=== PATIENT | female | born 1950 | race Caucasian/White ===

== ENCOUNTER 2017-09-25 08:37 | Outpatient (CLI) | payer BC ==
--- NOTE | 2017-09-30 16:44 | Mammography Report ---
DIGITAL BILATERAL SCREENING MAMMOGRAM: 09/25/2017 COMPARISON EXAM: Mammogram 09/28/2015. BREAST DENSITY: The breast parenchyma is extremely dense which may limit the sensitivity of mammography. TECHNIQUE: Routine CC and MLO projections were obtained of the breasts. FINDINGS: Parenchymal tissue within both breasts is extremely dense, which lowers the sensitivity of mammography; however, there are no dominant masses, suspicious microcalcifications, or secondary signs of malignancy. In comparison to the previous studies, there are no significant changes. There is a scar marker on the left breast. IMPRESSION: No mammographic evidence of malignancy. BIRADS category 2 - benign findings. PLAN: Screening mammography is recommended annually. STANDARD QUALIFYING STATEMENTS 1. This examination was reviewed with the aid of Computed-Aided Detection (CAD). 2. A negative or benign imaging report should not delay biopsy if clinically suspicious findings are present. Consider surgical consultation if warranted. More than 5% of cancers are not identified by imaging. 3. Dense breasts may obscure an underlying neoplasm. MTDD
== END 2017-09-25 08:38 | disposition home or self-care (01) ==
LOC: DI.S 08:37
PROVIDERS: ATTEND Physician Assistant
DX: Z12.31 Encounter for screening mammogram for malignant neoplasm of breast (principal)
CPT/HCPCS: 77067

== ENCOUNTER 2018-10-27 10:29 | Outpatient (CLI) | payer MEDICARE, OTHER ==
--- NOTE | 2018-10-27 14:34 | XRAY Report ---
Reason: LOW BACK PAIN Procedure Date: 10/27/2018 Accession Number: [id number] / [id number] Procedure: XR - Lumbar Spine 2 View CPT Code: FULL RESULT: EXAM: LUMBOSACRAL SPINE RADIOGRAPHY EXAM DATE: 10/27/2018 11:47 AM. CLINICAL HISTORY: Low back pain. COMPARISONS: None. TECHNIQUE: 3 views. FINDINGS: Alignment: Normal. No spondylolisthesis or scoliosis. Bones: Five vyn-kkf-eocuznf lumbar vertebral bodies are present. No fractures or bone lesions. Disks: Mild multilevel disk desiccation which is most pronounced at L1-L2 where there is marginal osteophytosis. Facets: Moderate facet arthropathy at L4 and moderate to severe facet arthropathy at L5. Sacroiliac Joints: Unremarkable. Soft Tissues: Normal. The visualized bowel gas pattern is normal. IMPRESSION: Degenerative changes. RADIA
== END 2018-10-27 10:30 | disposition home or self-care (01) ==
LOC: DI 10:29
PROVIDERS: ATTEND Nurse Practitioner Family
DX: M47.9 Spondylosis, unspecified (principal); M51.36 Other intervertebral disc degeneration, lumbar region
CPT/HCPCS: 72100

== ENCOUNTER 2019-12-17 08:44 | Outpatient (CLI) | payer MEDICARE, OTHER ==
--- NOTE | 2019-12-22 13:46 | Mammography Report ---
Reason: ROUTINE MAMMOGRAM Procedure Date: 12/17/2019 Accession Number: [id number] / [id number] Procedure: ILAN - Screening Mammo w/George CPT Code: Final Report FULL RESULT: EXAM: Screening Mammo w/George DATE: 12/17/2019 9:08 AM CLINICAL HISTORY: Screening encounter. History of nulliparity. TECHNIQUE: (B) - Bilateral CC and MLO views were obtained. COMPARISON: 09/25/2017 through 12/09/2012. PARENCHYMAL PATTERN: (D) - The breast(s) demonstrate(s) heterogeneously dense fibroglandular parenchyma. FINDINGS: There are no suspicious masses, calcifications, or areas of distortion. IMPRESSION: Negative examination. BI-RADS category 1. RECOMMENDATION: (ANNUAL) - Recommend routine annual screening mammography. BI-RADS CATEGORY: (1) - Negative. STANDARD QUALIFYING STATEMENTS: 1. This examination was not reviewed with the aid of Computer-Aided Detection (CAD). 2. A negative or benign imaging report should not preclude biopsy if clinically suspicious findings are present. 3. Dense breasts may obscure an underlying neoplasm. 4. This examination was reviewed with the aid of 3D breast imaging (tomosynthesis).
== END 2019-12-17 08:45 | disposition home or self-care (01) ==
LOC: DI 08:44
DX: Z12.31 Encounter for screening mammogram for malignant neoplasm of breast (principal)
CPT/HCPCS: 77063; 77067

== ENCOUNTER 2021-09-17 08:00 | Outpatient (CLI) | payer MEDICARE, OTHER ==
--- NOTE | 2021-09-17 11:11 | XRAY Report ---
PROCEDURE: Pelvis 3 View INDICATIONS: LEFT HIP PAIN TECHNIQUE: AP pelvis with lateral view(s) of the left hip(s). COMPARISON: Reference is made to the CT pelvis dated August 05, 2015. FINDINGS: BONES/JOINT: No acute, displaced fracture or dislocation. Mild to moderate joint space loss with para tracheal osteophytosis. No widening of the pubic symphysis. The sacroiliac joints are patent. SOFT TISSUES: No significant abnormality. IMPRESSION: 1.No acute osseous abnormality. Reviewed by: Jose Hilliard MD on 09/17/2021 11:10 AM [facility] Approved by: Jose Hilliard MD on 09/17/2021 11:10 AM [facility] Station ID: [id number]
== END 2021-09-17 23:59 | disposition home or self-care (01) ==
LOC: DI.S 08:00
PROVIDERS: ATTEND Physician Assistant Medical
DX: M25.552 Pain in left hip (principal); R10.32 Left lower quadrant pain

== ENCOUNTER 2021-09-20 06:56 | Outpatient (CLI) | payer MEDICARE, OTHER ==
--- NOTE | 2021-09-20 09:00 | MRI Report ---
PROCEDURE: Hip LT W/O INDICATIONS: PAIN IN LEFT HIP TECHNIQUE: Noncontrast coronal T1 spin echo and STIR through the bony pelvis. Coronal and axial T2 fast spin ec ho with fat saturation, sagittal T1 spin echo, and oblique axial T2 fast spin echo with fat saturatio n through the hip. COMPARISON: None. FINDINGS: Bones: There is marked marrow edema within the acetabular roof and posterior column. There is subtle linear signal change involving the posterior column for example image 18/601, image 21/401. These elaine earances are suggestive of nondisplaced, incomplete acetabular fracture. Mild edema involving the anterior femoral head although unclear if this represents contusion versus r eactive to chronic degenerative joint disease. No avascular necrosis of the femoral heads. Lower lumbar spondylosis and facet arthropathy. Sacroiliac joints: Normal. Tendons: Hip abductors: Gluteus minimus and medius intact. No muscle atrophy. There is mild edema within the hip adductor compartment suggestive of low-grade acute muscle strain Iliopsoas tendon: Intact. No adjacent bursitis. Hamstring tendon origin: Intact. Labrum and cartilage: Acetabular labrum: No discrete labral tear identified. Cartilage: Cartilage appears intact. Alpha angle of the femur: Within normal limits at less than 55 degrees. Soft tissues: Visualized muscles: Normal bulk and internal signal. Proximal sciatic neurovascular bundle: Normal. Pelvic free fluid: None. Bladder: Normal. Genitourinary structures and bowel loops: Normal where visualized. IMPRESSION: Signal changes and marrow edema involving the left acetabulum, compatible with incomplete/nondisplace d fracture. Recommend weightbearing precautions. Further evaluation and confirmation with dedicated C T could be performed. Additional marrow edema involving the femoral head which may represent small marrow contusion. Low-grade strain of the hip adductor muscles. Reviewed by: Zhang Hoffman MD on 09/20/2021 8:59 AM PST Approved by: Zhang Hoffman MD on 09/20/2021 8:59 AM PST Station ID: [id number]
== END 2021-09-20 06:57 | disposition home or self-care (01) ==
LOC: DI 06:56
PROVIDERS: ATTEND Family Medicine
DX: S76.012A Strain of muscle, fascia and tendon of left hip, initial encounter (principal); R93.6 Abnormal findings on diagnostic imaging of limbs

== ENCOUNTER 2021-10-11 11:01 | Outpatient (CLI) | payer MEDICARE, OTHER ==
[2021-10-11 11:16] LABS: BASOPHILS # (AUTO) 0.1 10^3/uL (0.0-0.1); BASOPHILS % (AUTO) 0.6 %; EOSINOPHILS # (AUTO) 0.2 10^3/uL (0.0-0.7); EOSINOPHILS % (AUTO) 2.8 %; HCT - HEMATOCRIT 41.4 % (37.0-47.0); HGB - HEMOGLOBIN 14.1 g/dL (12.0-16.0); LYMPHOCYTES % (AUTO) 11.9 %; MEAN CORPUSCULAR HEMOGLOBIN 31.8 pg (27.0-31.0); MEAN CORPUSCULAR HGB CONC 34.1 g/dL (32.0-36.0); MEAN CORPUSCULAR VOLUME 93.2 fL (81.0-99.0); MEAN PLATELET VOLUME 8.3 fL (7.9-10.8); MONOCYTES # (AUTO) 0.9 10^3/uL (0.0-1.0); MONOCYTES % (AUTO) 11.1 %; NEUTROPHILS # (AUTO) 6.1 10^3/uL (1.5-6.6); NEUTROPHILS % (AUTO) 73.4 %; PLT - PLATELET COUNT 277 10^3/uL (130-450); RED BLOOD COUNT 4.44 10^6/uL (4.20-5.40); WHITE BLOOD COUNT 8.4 x10^3/uL (4.8-10.8)
[2021-10-11 11:29] LABS: ALBUMIN/GLOBULIN RATIO 1.1 (1.0-2.2); BILIRUBIN,TOTAL 0.7 mg/dL (0.2-1.0); CALCIUM 9.8 mg/dL (8.5-10.3); CREATININE 0.7 mg/dL (0.4-1.0); POTASSIUM 3.9 mmol/L (3.5-5.0); TOTAL PROTEIN 7.8 g/dL (6.7-8.2); URIC ACID 5.9 mg/dL (2.6-7.2)
--- NOTE | 2021-10-11 11:56 | DEXA Report ---
PROCEDURE: Dexa Spine and/or Hip INDICATIONS: OSTEOPENIA TECHNIQUE: Dual energy x-ray absorptiometry (DXA) was performed on a [employer] System. Regions measur ed are the AP Spine, femoral neck, and if needed forearm. COMPARISON: None available for review. FINDINGS: Lumbar Spine: Bone Mineral Density 1.177 g/cm/cm,T score -0.1, normal bone density Right Hip: Bone Mineral Density 0.852 g/cm/cm,T score -1.2, osteopenia Right Femoral Neck: Bone Mineral Density 0.786 g/cm/cm, T score -1.8, osteopenia (T score greater or equal to -1.0: NORMAL) (T score from -1.1 to -2.4: OSTEOPENIA) (T score less than or equal to -2.5 to: OSTEOPOROSIS) Impression: OSTEOPENIA. Patient is at increased risk for fracture. Patients with diagnosis of osteoporosis or osteopenia should have regular bone mineral density assess ment. For those eligible for Medicare, routine testing is allowed once every 2 years. Testing frequ ency can be increased for patients who have rapidly progressing disease or for those who are receivin g medical therapy to restore bone mass. Reviewed by: Yinka Mace MD on 10/11/2021 11:55 AM PST Approved by: Yinka Mace MD on 10/11/2021 11:55 AM PST Station ID: [id number]
== END 2021-10-11 11:02 | disposition home or self-care (01) ==
LOC: DI 11:01
PROVIDERS: ATTEND Nurse Practitioner Family
DX: M85.89 Other specified disorders of bone density and structure, multiple sites (principal); M25.475 Effusion, left foot
CPT/HCPCS: 36415; 80053; 84550; 85025

== ENCOUNTER 2021-12-04 12:54 | Outpatient (CLI) | payer MEDICARE, OTHER ==
--- NOTE | 2021-12-05 08:03 | Mammography Report ---
BILATERAL DIGITAL SCREENING MAMMOGRAM 3D/2D: 12/04/2021 CLINICAL: Routine screening. Family history of breast cancer. Comparison is made to exams dated: 09/25/2017 mammogram and 09/28/2015 mammogram - [facility]. The tissue of both breasts is heterogeneously dense. This may lower the sensitivity of m ammography. There is a new 1 cm irregular asymmetry with an obscured margin in the right breast at 10 o'clock mid dle depth. This is seen in additional views. No other significant masses, calcifications, or other findings are seen in either breast. IMPRESSION: INCOMPLETE: NEEDS ADDITIONAL IMAGING EVALUATION The new 1 cm irregular asymmetry in the right breast is indeterminate. A diagnostic mammogram and ul trasound is recommended. This exam was interpreted at Station ID: [id number]. NOTE: For mammograms, a report in lay terms will be sent to the patient. Approximately 15% of breast malignancies will not be visualized mammographically. In the management of a palpable breast mass, a negative mammogram must not discourage biopsy of a clinically suspicious lesion. Electronically Signed By: Ashtyn thompson/raz:12/04/2021 15:49:49 ACR BI-RADS Category 0: Incomplete 3340F PARENCHYMAL PATTERN: (D) - The breast(s) demonstrate(s) heterogeneously dense fibroglandular lydia main. BI-RADS CATEGORY: (0) - 0 Ultrasound [id number] Immediate follow-up LATERALITY: (B)
== END 2021-12-04 12:55 | disposition home or self-care (01) ==
LOC: DI.S 12:54
PROVIDERS: ATTEND Nurse Practitioner Family
DX: Z12.31 Encounter for screening mammogram for malignant neoplasm of breast (principal); Z80.3 Family history of malignant neoplasm of breast; R92.8 Other abnormal and inconclusive findings on diagnostic imaging of breast

== ENCOUNTER 2022-10-08 15:47 | Outpatient (CLI) | payer MEDICARE, OTHER | END 2022-10-08 15:48 | disposition short-term general hospital (02) | LOC: EMS 15:47 | DX: S99.911A Unspecified injury of right ankle, initial encounter (principal); W01.0XXA Fall on same level from slipping, tripping and stumbling without subsequent striking against object, initial encounter; Y93.01 Activity, walking, marching and hiking; Y92.008 Other place in unspecified non-institutional (private) residence as the place of occurrence of the external cause | CPT/HCPCS: A0425; A0427 ==

== ENCOUNTER 2023-09-12 14:43 | Outpatient (CLI) | payer MEDICARE, OTHER ==
--- NOTE | 2023-09-12 15:41 | DEXA Report ---
PROCEDURE: Dexa Spine and/or Hip INDICATIONS: HISTORY OF FRAGILITY FRACTURE TECHNIQUE: Dual energy x-ray absorptiometry (DXA) was performed on a [employer] System. Regions measur ed are the AP Spine, femoral neck, and if needed forearm. COMPARISON: 10/11/2021 FINDINGS: Lumbar Spine: Bone Mineral Density 1.18 g/cm/cm,T score -0.1. Similar to prior Left Femoral Neck: Bone Mineral Density 0.72 g/cm/cm, T score -2.3, slightly lower than prior. Left Hip: Bone Mineral Density 0.82 g/cm/cm,T score -1.5. Slightly lower than prior (T score greater or equal to -1.0: NORMAL) (T score from -1.1 to -2.4: OSTEOPENIA) (T score less than or equal to -2.5 to: OSTEOPOROSIS) Impression: By WHO criteria, this patient has low bone density (osteopenia). Patients with diagnosis of osteoporosis or osteopenia should have regular bone mineral density assess ment. For those eligible for Medicare, routine testing is allowed once every 2 years. Testing frequ ency can be increased for patients who have rapidly progressing disease or for those who are receivin g medical therapy to restore bone mass. Reviewed by: Sunday Jauregui MD on 09/12/2023 3:40 PM PST Approved by: Sunday Jauregui MD on 09/12/2023 3:40 PM PST Station ID: [id number]
== END 2023-09-12 14:44 | disposition home or self-care (01) ==
LOC: DI 14:43
PROVIDERS: ATTEND Physician Assistant
DX: M85.89 Other specified disorders of bone density and structure, multiple sites (principal); Z87.310 Personal history of (healed) osteoporosis fracture

== ENCOUNTER 2023-10-12 18:57 | Emergency (ER) | payer MEDICARE, OTHER ==
--- NOTE | 2023-10-12 19:34 | ED Physician Documentation ---
History of Present Illness - Stated complaint Stated Complaint: DIZZY,SOA - Chief complaint Chief Complaint: Cardiac - History obtained from History obtained from: Patient - Additonal information Additional information: 72-year-old female presents for elevated blood pressure readings at home. Patient has atrial fibrillation, status post ablation. She has had difficulty in controlling her blood pressure and heart rate this week, she has had numerous medical changes from her cardiology team at [facility]. Tonight her blood pressure was as elevated as 190 systolic and she said she felt lightheaded and unsteady. She called her shipping services sales representative, who recommended an ER evaluation. Patient denies chest pain, shortness of breath, leg swelling, hematuria, headache Review of Systems Constitutional: denies: Fever, Chills Respiratory: denies: Dyspnea, Cough, Wheezing GI: denies: Abdominal Pain, Nausea, Vomiting, Constipation, Diarrhea : denies: Dysuria, Frequency, Hesitancy Neurologic: reports: Other ("lightheaded"). 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 - Present Medications Home Medications: Ambulatory Orders Medication Instructions Recorded Confirmed Atorvastatin [Lipitor] 10 mg PO DAILY 08/05/15 08/05/15 Dronedarone HCl [Multaq] 40 mg PO BID 08/05/15 08/05/15 HYDROcod/ACETAM 5/325 [Priddy 5/325] 1 - 2 ea PO Q6H PRN #15 tablet 08/05/15 Magnesium 200 mg PO DAILY 08/05/15 08/05/15 Metoprolol Tartrate 75 mg PO BID 08/05/15 08/05/15 Potassium Chloride 20 meq PO DAILY 08/05/15 08/05/15 Warfarin [Coumadin] 5 mg PO DAILY 08/05/15 08/05/15 diltiaZEM [Cardizem] 60 mg PO BID 08/05/15 08/05/15 hydroCHLOROthiazide [Hydrodiuril] 12.5 mg PO DAILY #30 cap 10/12/23 hydroCHLOROthiazide [Hydrodiuril] 12.5 mg PO DAILY #30 tablet 10/12/23 - Allergies Allergies/Adverse Reactions: Allergies Allergy/AdvReac Type Severity Reaction Status Date / Time flecainide Allergy Anxiety Verified 08/05/15 10:57 - Social History Does the pt smoke?: No Smoking Status: Never smoker Does the pt drink ETOH?: Yes Does the pt have substance abuse?: No - Immunizations Immunizations are current?: Yes PD ED PE NORMAL - Vitals Vital signs reviewed: Yes - General General: Alert and oriented X 3, No acute distress, Well developed/nourished - HEENT HEENT: Atraumatic - Neck Neck: Supple, no meningeal sign - Cardiac Cardiac: RRR - Respiratory Respiratory: No respiratory distress, Clear bilaterally - Abdomen Abdomen: Soft, Non tender, Non distended - Derm Derm: Normal color, Warm and dry, No rash - Extremities Extremities: No deformity, No tenderness to palpate, Normal ROM s pain, No edema - Neuro Neuro: Alert and oriented X 3, comprehensive ophthalmologist 2-12 intact, No motor deficit, Normal speech - Psych Psych: Normal mood, Normal affect Results - Vitals Vitals: Vital Signs - 24 hr 10/12/23 10/12/23 10/12/23 19:14 20:54 21:11 Temperature 36.7 C Heart Rate 60 53 L 52 L Respiratory 18 18 12 Rate Blood Pressure 188/107 H 155/91 H 167/89 H O2 Saturation 97 97 95 Oxygen O2 Source Room air - Labs Labs: Laboratory Tests 10/12/23 10/12/23 19:39 19:39 WBC 9.0 RBC 4.76 Hgb 14.5 Hct 42.2 MCV 88.7 MCH 30.5 MCHC 34.4 RDW 12.1 Plt Count 252 MPV 8.6 Neut # (Auto) 7.3 H Lymph # (Auto) 0.9 L Hand # (Auto) 0.7 Eos # (Auto) 0.1 Baso # (Auto) 0.0 Absolute Nucleated RBC 0.00 Nucleated RBC % 0.0 Sodium 134 L Potassium 3.8 Chloride 98 L Carbon Dioxide 27 Anion Gap 9.0 BUN 11 Creatinine 0.7 Estimated GFR (MDRD) 83 L Glucose 108 H Calcium 10.1 Total Bilirubin 0.9 AST 15 ALT 16 Alkaline Phosphatase 96 Troponin I High Sens 6.7 Total Protein 7.4 Albumin 4.6 Globulin 2.8 Albumin/Globulin Ratio 1.6 Lipase 10 L PD Medical Decision Making - ED course Complexity details: reviewed results, re-evaluated patient, considered differential, d/w patient, d/w business continuity consultant ED course: asymtpomatic hypertension. Mild hypertension on arrival, however when resting in ED BP returns to 150s systolic. Reports lightheadedness, however stable on feet, no neuro deficit. Labs unremarkable. Call placed to data security consultant cardiology, who will follow patient in clinic and made recommendations to change metoprolol to 50mg BID. Patient will change this med, and I also RX'd HCTZ in case patient has break through HTN until her appointment. Departure - Departure Disposition: Home, Self Care Clinical Impression: Hypertension Condition: Stable Instructions: Hypertension Control Prescriptions: hydroCHLOROthiazide [Hydrodiuril] 12.5 mg PO DAILY #30 cap hydroCHLOROthiazide [Hydrodiuril] 12.5 mg PO DAILY #30 tablet Forms: PCP List Discharge Date/Time: 10/12/23 21:21
[2023-10-12 19:54] LABS: BASOPHILS % (AUTO) 0.4 %; EOSINOPHILS # (AUTO) 0.1 10^3/uL (0.0-0.7); EOSINOPHILS % (AUTO) 1.2 %; HCT - HEMATOCRIT 42.2 % (37.0-47.0); HGB - HEMOGLOBIN 14.5 g/dL (12.0-16.0); LYMPHOCYTES # (AUTO) 0.9 10^3/uL (1.5-3.5); LYMPHOCYTES % (AUTO) 9.6 %; MEAN CORPUSCULAR HEMOGLOBIN 30.5 pg (27.0-31.0); MEAN CORPUSCULAR HGB CONC 34.4 g/dL (32.0-36.0); MEAN CORPUSCULAR VOLUME 88.7 fL (81.0-99.0); MEAN PLATELET VOLUME 8.6 fL (7.9-10.8); MONOCYTES # (AUTO) 0.7 10^3/uL (0.0-1.0); MONOCYTES % (AUTO) 7.6 %; NEUTROPHILS # (AUTO) 7.3 10^3/uL (1.5-6.6); PLT - PLATELET COUNT 252 10^3/uL (130-450); RED BLOOD COUNT 4.76 10^6/uL (4.20-5.40); RED CELL DISTRIBUTION WIDTH 12.1 % (12.0-15.0)
--- NOTE | 2023-10-12 20:00 | XRAY Report ---
PROCEDURE: Chest 1V INDICATIONS: Chest pain TECHNIQUE: One view of the chest was acquired. COMPARISON: None. FINDINGS: Surgical changes and devices: None. Lungs and pleura: An incomplete inspiratory result is noted, with low lung volumes and crowding of t he vascular markings. No focal infiltrates are seen. No large pneumothorax or large pleural effusion can be seen. Mediastinum: The aorta is prominent and tortuous. The cardiac contours are within normal limits. Bones and chest wall: No suspicious bony lesions. Overlying soft tissues appear unremarkable. IMPRESSION: Low lung volumes, without an acute cardiopulmonary abnormality seen. Reviewed by: Willi Murcia MD on 10/12/2023 6:59 PM [facility] Approved by: Willi Murcia MD on 10/12/2023 6:59 PM [facility] Station ID: [id number]
[2023-10-12 20:07] LABS: ALBUMIN 4.6 g/dL (3.2-5.5); ALBUMIN/GLOBULIN RATIO 1.6 (1.0-2.2); BILIRUBIN,TOTAL 0.9 mg/dL (0.2-1.0); CALCIUM 10.1 mg/dL (8.5-10.3); CREATININE 0.7 mg/dL (0.6-1.3); POTASSIUM 3.8 mmol/L (3.5-4.5); TOTAL PROTEIN 7.4 g/dL (6.4-8.9)
[2023-10-12 20:08] LABS: TROPONIN I HIGH SENSITIVITY 6.7 ng/L (2.3-14.8)
[2023-10-12] MEDS ORDERED: hydroCHLOROthiazide 25 MG TABLET PO STA (21:04)
[2023-10-12 21:19] VITALS: BP 167/89; O2SAT 95
== END 2023-10-12 21:21 | disposition home or self-care (01) ==
LOC: ED 18:57
DX: I10 Essential (primary) hypertension (principal); E78.00 Pure hypercholesterolemia, unspecified; I48.91 Unspecified atrial fibrillation; Z79.899 Other long term (current) drug therapy; Z79.01 Long term (current) use of anticoagulants
CPT/HCPCS: 36415; 71045; 80053; 83690; 84484; 85025; 93005; 99283; 99284; A9270

== ENCOUNTER 2023-10-19 09:55 | Emergency (ER) | payer MEDICARE, OTHER ==
[2023-10-19 10:21] VITALS: O2SAT 99
[2023-10-19] MEDS ORDERED: HYDROcod/ACETAM 5/325 MG TABLET PO STA (10:24)
--- NOTE | 2023-10-19 10:25 | ED Physician Documentation ---
PD HPI UPPER EXT INJURY - Stated complaint Stated Complaint: RT ARM PX - Chief complaint Chief Complaint: Trauma Ext - History obtained from History obtained from: Patient - Additonal information Additional information: 72-year-old woman on Eliquis for history of A-fib fell about 36 hours ago at home onto an outstretched right wrist and the pain became unbearable this morning. She did hit her head but really does not feel injured from that perspective without headache. That said given the head strike she is amenable to head CT. PD PAST MEDICAL HISTORY - Past Medical History Past Medical History: Yes Cardiovascular: Hypertension, High cholesterol, Atrial fibrillation Respiratory: Sleep apnea, CPAP use Neuro: None Endocrine/Autoimmune: None GI: None GLUING MACHINE OPERATOR: Uterine cancer : None Psych: Anxiety Musculoskeletal: Osteoarthritis Derm: None - Past Surgical History Past Surgical History: Yes /GLUING MACHINE OPERATOR: Hysterectomy Cardiovascular: Other - Present Medications Home Medications: Ambulatory Orders Medication Instructions Recorded Confirmed Atorvastatin [Lipitor] 10 mg PO DAILY 08/05/15 10/19/23 Magnesium 200 mg PO DAILY 08/05/15 10/19/23 Amiodarone [Pacerone] 200 mg PO DAILY 10/19/23 10/19/23 Apixaban [Eliquis] 5 mg ORAL BID 10/19/23 10/19/23 Fluoxetine HCl 30 mg PO DAILY 10/19/23 10/19/23 HYDROcod/ACETAM 5/325 [Enid 5/325] 1 - 2 tab PO Q6H PRN #20 tablet 10/19/23 Losartan [Cozaar] 50 mg PO BID 10/19/23 10/19/23 Metoprolol Succinate 100 mg PO DAILY 10/19/23 10/19/23 Pantoprazole [Protonix] 40 mg PO DAILY 10/19/23 10/19/23 dilTIAZem HCL [Diltiazem 24Hr ER] 120 mg PO DAILY PM 10/19/23 10/19/23 hydroCHLOROthiazide [Hydrodiuril] 50 mg PO DAILY 10/19/23 10/19/23 - Allergies Allergies/Adverse Reactions: Allergies Allergy/AdvReac Type Severity Reaction Status Date / Time flecainide Allergy Anxiety Verified 10/19/23 10:06 - Social History Does the pt smoke?: No Smoking Status: Former smoker Does the pt drink ETOH?: Yes ETOH Use: Wine Does the pt have substance abuse?: No - Immunizations Immunizations are current?: Yes PD ED PE NORMAL - Vitals Vital signs reviewed: Yes - General General: Alert and oriented X 3, No acute distress - HEENT HEENT: PERRL, EOMI - Neck Neck: Supple, no meningeal sign, No bony TTP - Respiratory Respiratory: Other (Ribs palpated and nontender) - Abdomen Abdomen: Non tender - Extremities Extremities: Other (Quite tender to the distal radius on the right, no snuffbox tenderness. Very limited range of motion of the right wrist because of pain. Normal neurovascular function in the right hand.) - Neuro Neuro: Alert and oriented X 3, Normal speech Eye Opening: Spontaneous Motor: Obeys Commands Verbal: Oriented GCS Score: 15 - Psych Psych: Normal mood, Normal affect Results - Vitals Vitals: Vital Signs - 24 hr 10/19/23 10:08 Temperature 36 C L Heart Rate 54 L Respiratory 16 Rate Blood Pressure 131/74 H O2 Saturation 99 Oxygen O2 Source Room air - Rads (name of study) 4 view x-ray right wrist showing an avulsion fracture at the tip of the distal radius. Also some chronic degenerative findings. Relevant Findings:: Final report received, EMP independent interpretation of test CT of the head is without trauma, Relevant Findings:: Final report received, EMP independent interpretation of test Procedures - Splint (location) - Minor RUE Splint applied by: Physician Type of splint: Fiberglass, Short arm, Thumb spica Departure - Departure Disposition: 01 Home, Self Care Clinical Impression: Adequate anticoagulation on anticoagulant therapy Fracture of right distal radius Qualifiers: Encounter type: initial encounter Fracture type: closed Fracture morphology: other fracture Qualified Code(s): S52.591A - Other fractures of lower end of right radius, initial encounter for closed fracture Head injury Qualifiers: Encounter type: initial encounter Qualified Code(s): S09.90XA - Unspecified injury of head, initial encounter Condition: Stable Record reviewed to determine appropriate education?: Yes Instructions: ED Head Injury Closed, ED Fx Forearm Radius Ulna No Redu Requ Follow-Up: Orthopedic Care [Provider Group] - Within 1 week Prescriptions: HYDROcod/ACETAM 5/325 [Enid 5/325] 1 - 2 tab PO Q6H PRN #20 tablet PRN Reason: Pain Comments: I sent your prescription electronically to the [facility] in [place]. Keep the splint on and dry, follow-up with orthopedic surgeons within the week or so. Call Friday for an appointment. Return if worse. I am prescribing a short course of narcotic pain medication for you. These are potentially dangerous and addictive medications that should be used carefully. These medications may constipate you. Take an uqfk-lvu-mpxyjaa stool softener (docusate) twice daily with plenty of water while taking these medications. If you go 24 hours without a bowel movement, take vmzv-mml-lzmctoi miralax, per package instructions. Do not drink or drive while taking these medications. If you received narcotic or sedating medications while in the emergency department, do not drive for 24 hours. Store this medication in a safe, secure place and out of reach of children. It is a violation of federal law to give or sell this medication to another person or to use in a manner other than prescribed. The ED will not refill narcotic prescriptions, including prescriptions lost or stolen. To dispose of unwanted medications: 1. [facility] provides a drop box for medication in pill form only (no liquids) 8:00 am to 4:30 p.m. Friday-Friday in the lobby of the [facility], [address] [place] [address]. Empty pills into ziplock bag before disposal. Call [phone] for information. 2.[employer] is a free service available to all [facility] residents. Go to [email or web address] Note that many narcotic pain relievers also contain Tylenol/acetaminophen. Please ensure that your total dose of acetaminophen from all sources does not exceed 3 g (3000 mg) per day. Forms: PCP List
--- NOTE | 2023-10-19 10:43 | XRAY Report ---
PROCEDURE: Wrist 4 View RT INDICATIONS: wirst inj TECHNIQUE: 4 views of the wrist were acquired. COMPARISON: None. FINDINGS: Bones: Scattered mild degenerative changes, particularly at the STT joint. No displaced acute fractu re. Subchondral lucencies at the distal scaphoid and proximal triquetrum and trapezius. There may be a tiny avulsion fracture fragment from the distal radial styloid. Soft tissues: TFCC chondrocalcinosis. IMPRESSION: Possible tiny avulsion fracture fragment from the distal radial styloid. Suspected degenerative changes at the STT joint, with subchondral lucencies. Differential includes se quela of prior erosive disease. TFCC chondrocalcinosis. Reviewed by: Sunday Jauregui MD on 10/19/2023 10:42 AM [facility] Approved by: Sunday Jauregui MD on 10/19/2023 10:42 AM [facility] Station ID: [id number]
--- NOTE | 2023-10-19 11:27 | CT Report ---
PROCEDURE: HEAD WO INDICATIONS: head inj TECHNIQUE: Noncontrast 4.5 mm thick angled axial sections acquired from the foramen magnum to the vertex. For r adiation dose reduction, the following was used: automated exposure control, adjustment of mA and/or kV according to patient size. COMPARISON: None. FINDINGS: Image quality: Excellent. CSF spaces: Basal cisterns are patent. No extra-axial fluid collections. Ventricles are normal in size and shape. Brain: No midline shift. No intracranial masses or hemorrhage. Malone-white matter interface is norm al. Skull and face: Calvarium and visualized facial bones are intact, without suspicious lesions. Sinuses: Visualized sinuses and mastoids are clear. There is progressive opacification of the right sphenoid sinus. The remaining visualized paranasal sinuses and mastoid air cells are clear. IMPRESSION: 1.No acute intracranial pathology. 2.Right sphenoid paranasal sinus disease. Reviewed by: Bernard Alexis MD on 10/19/2023 11:25 AM [facility] Approved by: Bernard Alexis MD on 10/19/2023 11:25 AM [facility] Station ID: [id number]
[2023-10-19 12:07] VITALS: BP 133/83
== END 2023-10-19 12:02 | disposition home or self-care (01) ==
LOC: ED 09:55
DX: S52.591A Other fractures of lower end of right radius, initial encounter for closed fracture (principal); S09.90XA Unspecified injury of head, initial encounter; W19.XXXA Unspecified fall, initial encounter; Y92.009 Unspecified place in unspecified non-institutional (private) residence as the place of occurrence of the external cause; I48.91 Unspecified atrial fibrillation; Z79.01 Long term (current) use of anticoagulants; I10 Essential (primary) hypertension; Z87.891 Personal history of nicotine dependence
CPT/HCPCS: 29125; 70450; 73110; 99284; A9270

== ENCOUNTER 2023-10-21 13:28 | Outpatient (CLI) | payer MEDICARE, OTHER ==
--- NOTE | 2023-10-21 15:38 | XRAY Report ---
PROCEDURE: Cervical Spine w/Flex/Ext 6+V INDICATIONS: NECK PAIN TECHNIQUE: 7 views of the cervical spine were acquired. COMPARISON: None. FINDINGS: Bones: No fractures or dislocations to the C7 level. No suspicious bony lesions. 3 mm anterolisthes is of C3 on C4 with neutral and flexion, but resolves with extension. 3 mm anterolisthesis of C4 on C 5, stable flexion and extension. Moderate, multilevel degenerative disc disease and diffuse facet art hrosis. Soft tissues: Prevertebral soft tissues are normal in thickness. IMPRESSION: 3 mm anterolisthesis of C3 on C4 with neutral and flexion, but resolves with extension. 3 mm anterolisthesis of C4 on C5, stable flexion and extension. Moderate, multilevel degenerative disc disease and diffuse facet arthrosis. Reviewed by: Elpidio Torres MD on 10/21/2023 3:37 PM PST Approved by: Elpidio Torres MD on 10/21/2023 3:37 PM PST Station ID: [id number]
== END 2023-10-21 13:29 | disposition home or self-care (01) ==
LOC: DI.S 13:28
PROVIDERS: ATTEND Internal Medicine
DX: M43.12 Spondylolisthesis, cervical region (principal); M47.812 Spondylosis without myelopathy or radiculopathy, cervical region; M50.30 Other cervical disc degeneration, unspecified cervical region

== ENCOUNTER 2023-11-11 08:00 | Outpatient (CLI) | payer MEDICARE, OTHER ==
--- NOTE | 2023-11-11 15:22 | XRAY Report ---
PROCEDURE: Wrist 3 View RT INDICATIONS: RIGHT WIRST INJURY TECHNIQUE: 3 views of the wrist were acquired. COMPARISON: Right wrist radiographs 10/19/2023. FINDINGS: Bones: No acute fractures or dislocations. No suspicious bony lesions. Small chronic appearing os sification adjacent to the ulnar styloid tip is likely the sequela of a remote prior injury. Moderate to severe degenerative changes are seen at the triscaphe joint. Mild osteoarthrosis of the 1st carpo metacarpal and 1st metacarpophalangeal joints. Soft tissues: Calcifications are seen in the region of the triangular fibrocartilage. IMPRESSION: 1.No acute osseous abnormality identified. 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 3.Chondrocalcinosis. Reviewed by: Bernard Alexis MD on 11/11/2023 3:20 PM PST Approved by: Bernard Alexis MD on 11/11/2023 3:20 PM PST Station ID: [id number]
== END 2023-11-11 23:59 | disposition home or self-care (01) ==
LOC: DI.WOS 08:00
PROVIDERS: ATTEND Orthopaedic Surgery
DX: S52.501A Unspecified fracture of the lower end of right radius, initial encounter for closed fracture (principal); M19.031 Primary osteoarthritis, right wrist; M11.231 Other chondrocalcinosis, right wrist

== ENCOUNTER 2023-12-03 09:45 | Outpatient (CLI) | payer MEDICARE, OTHER ==
[2023-12-03 14:48] LABS: BASOPHILS # (AUTO) 0.1 10^3/uL (0.0-0.1); BASOPHILS % (AUTO) 1.1 %; EOSINOPHILS # (AUTO) 0.2 10^3/uL (0.0-0.7); EOSINOPHILS % (AUTO) 3.5 %; HCT - HEMATOCRIT 42.4 % (37.0-47.0); HGB - HEMOGLOBIN 13.9 g/dL (12.0-16.0); LYMPHOCYTES # (AUTO) 0.8 10^3/uL (1.5-3.5); MEAN CORPUSCULAR HEMOGLOBIN 30.3 pg (27.0-31.0); MEAN CORPUSCULAR HGB CONC 32.8 g/dL (32.0-36.0); MEAN CORPUSCULAR VOLUME 92.4 fL (81.0-99.0); MEAN PLATELET VOLUME 8.7 fL (7.9-10.8); MONOCYTES # (AUTO) 0.7 10^3/uL (0.0-1.0); MONOCYTES % (AUTO) 10.6 %; NEUTROPHILS # (AUTO) 4.5 10^3/uL (1.5-6.6); NEUTROPHILS % (AUTO) 71.6 %; PLT - PLATELET COUNT 237 10^3/uL (130-450); RED BLOOD COUNT 4.59 10^6/uL (4.20-5.40); RED CELL DISTRIBUTION WIDTH 12.7 % (12.0-15.0); WHITE BLOOD COUNT 6.2 x10^3/uL (4.8-10.8)
[2023-12-03 15:30] LABS: THYROID STIMULATING HORMONE 5.58 uIU/mL (0.34-5.60)
[2023-12-03 15:38] LABS: ALBUMIN 4.4 g/dL (3.2-5.5); ALBUMIN/GLOBULIN RATIO 2.1 (1.0-2.2); BILIRUBIN,TOTAL 0.6 mg/dL (0.2-1.0); CALCIUM 10.1 mg/dL (8.5-10.3); CREATININE 0.7 mg/dL (0.6-1.3); POTASSIUM 4.1 mmol/L (3.5-4.5); TOTAL PROTEIN 6.5 g/dL (6.4-8.9)
[2023-12-03 20:34] LABS: ESTIMATED AVERAGE GLUCOSE 120 mg/dL (70-100); HEMOGLOBIN A1c% 5.8 % (4.27-6.07)
[2023-12-04 08:10] LABS: VITAMIN D 25-HYDROXY 46.3 ng/mL (30.0-100.0)
[2023-12-04 17:08] LABS: CALCIUM IONIZED SERUM 5.1 mg/dL (4.5-5.6)
== END 2023-12-03 09:46 | disposition home or self-care (01) ==
LOC: LAB.S 09:45
PROVIDERS: ATTEND Internal Medicine
DX: I10 Essential (primary) hypertension (principal); Z87.310 Personal history of (healed) osteoporosis fracture; S52.501A Unspecified fracture of the lower end of right radius, initial encounter for closed fracture; E55.9 Vitamin D deficiency, unspecified; E66.3 Overweight; I48.0 Paroxysmal atrial fibrillation
CPT/HCPCS: 36415; 80053; 82306; 82330; 83036; 83970; 84443; 85025

== ENCOUNTER 2024-01-22 10:22 | Outpatient (CLI) | payer MEDICARE, OTHER ==
--- NOTE | 2024-01-22 11:18 | XRAY Report ---
PROCEDURE: Lumbar Spine 2-3V INDICATIONS: LUMBAR RADICULOPATHY TECHNIQUE: 2 views of the lumbar spine were acquired. COMPARISON: 06/04/2024 FINDINGS: Bones: 5 [id number] vertebrae are present. Mild anterolisthesis of L4 on L5. Straightening of n ormal lumbar lordosis. There are multilevel degenerative changes of the lumbar spine with facet arthr opathy and disc height loss with degenerative endplate changes and marginal spurring. This is most se lawson at L1-L2 and L5-S1. No vertebral body compression fractures. No suspicious bony lesions. Diffu sely decreased osseous mineralization. Soft tissues: Overlying bowel gas pattern is normal. No suspicious soft tissue calcifications. Mil d atherosclerotic vascular calcific patient. IMPRESSION: Multilevel degenerative changes of the lumbar spine, most pronounced at L1-L2 and L5-S1. Reviewed by: Alfie Yen MD on 01/22/2024 11:17 AM PDT Approved by: Alfie Yen MD on 01/22/2024 11:17 AM PDT Station ID: [id number]
== END 2024-01-22 10:23 | disposition home or self-care (01) ==
LOC: DI.S 10:22
PROVIDERS: ATTEND Internal Medicine
DX: M47.816 Spondylosis without myelopathy or radiculopathy, lumbar region (principal); M47.817 Spondylosis without myelopathy or radiculopathy, lumbosacral region

== ENCOUNTER 2024-06-23 13:49 | Outpatient (CLI) | payer MEDICARE, OTHER ==
--- NOTE | 2024-06-24 13:19 | MRI Report ---
Lumbar Spine WO Clinical History: 73 years of age, Female, NEUROGENIC CLAUDICATION. Comparison: No priors available Technique: Multiplanar multisequence lumbar spine MRI without contrast was performed. Findings: Prior surgery: None. Vertebral bodies: Multiple small Schmorl's node. Alignment: Mild degenerative disease at T11-T12. Mild retrolisthesis of L1-L2, L2 on L3. Grade 1 ante rolisthesis of L4 on L5 and L5-S1. Bone marrow: Multilevel mild fibrovascular endplate change. Intervertebral discs: Multilevel disc bulge and disc desiccation. The conus medullaris is normal in contour, signal intensity, and location. The tip of the conus is at L1-L2. The following axial levels are detailed below: T11-T12: Mild disc bulge. No central canal stenosis. No neuroforaminal stenosis. T12-L1: Mild disc bulge. No central canal stenosis. No right neuroforaminal stenosis. No left neurofo raminal stenosis. L1-L2: Mild disc bulge. No central canal stenosis. No right neuroforaminal stenosis. No left neurofor aminal stenosis. L2-L3: Mild disc bulge. No central canal stenosis. Mild right neuroforaminal stenosis. Mild left neur oforaminal stenosis. L3-L4: Disc bulge. No central canal stenosis. No right neuroforaminal stenosis. No left neuroforamin al stenosis. L4-L5: Mild disc bulge. Moderate bilateral facet arthropathy. Moderate central canal stenosis. Mild r ight neuroforaminal stenosis. Mild left neuroforaminal stenosis. L5-S1: Mild to moderate bilateral facet arthropathy. Disc bulge. No central canal stenosis. Mild righ t neuroforaminal stenosis. Moderate left neuroforaminal stenosis. Visualized sacrum and pelvis: Visualized sacrum is intact. IMPRESSION: Multilevel degenerative change of lumbar spine, most pronounced at L5-4-5, where there is moderate ce ntral canal stenosis and mild bilateral neuroforaminal stenosis. Reviewed by: Jimena Rubio MD on 06/24/2024 1:18 PM PDT Approved by: Jimena Rubio MD on 06/24/2024 1:18 PM PDT Station ID: [id number]
== END 2024-06-23 13:50 | disposition home or self-care (01) ==
LOC: DI 13:49
PROVIDERS: ATTEND Internal Medicine
DX: M51.36 Other intervertebral disc degeneration, lumbar region (principal); M48.061 Spinal stenosis, lumbar region without neurogenic claudication; M47.816 Spondylosis without myelopathy or radiculopathy, lumbar region; M47.817 Spondylosis without myelopathy or radiculopathy, lumbosacral region; M51.37 Other intervertebral disc degeneration, lumbosacral region; M48.07 Spinal stenosis, lumbosacral region